=== PATIENT | male | born 1990 | race Caucasian/White ===

== ENCOUNTER → 2019-11-30 | Outpatient (CLI) | payer SELFPAY ==
--- NOTE | 2019-11-30 11:40 | Diagnostic Imaging Report ---
Indication: Followup left elbow fracture. Time of exam: 10:49 AM No prior studies are available for comparison. 3 views of the left elbow demonstrate a fracture of the neck of the radius. No definite intra-articular extension is seen. Alignment is anatomic. There is a prominent anterior fat pad consistent with elbow joint effusion. Impression: Nondisplaced radius neck fracture with elbow joint effusion, likely hemarthrosis. Dictated by: Dictated on workstation # [id number]
== END ==
LOC: RAD FS 10:17
PROVIDERS: ATTEND Nurse Practitioner
DX: S52.135D Nondisplaced fracture of neck of left radius, subsequent encounter for closed fracture with routine healing (principal)
CPT/HCPCS: 73080